=== PATIENT | male | born 1990 | race Caucasian/White ===

== ENCOUNTER 2018-06-30 00:12 | Emergency (ER) | payer MEDICARE ==
[~2018-06-30] VITALS: Ht 182.9 cm; Wt 118.4 kg
== END 2018-06-30 00:52 | disposition home or self-care (01) ==
LOC: ER 00:12
DX: R07.89 Other chest pain (principal); I10 Essential (primary) hypertension; R62.50 Unspecified lack of expected normal physiological development in childhood; E66.9 Obesity, unspecified; F17.210 Nicotine dependence, cigarettes, uncomplicated
CPT/HCPCS: 93005; 99282

== ENCOUNTER 2021-12-05 08:05 | Emergency (ER) | payer MEDICARE, OTHER ==
[~2021-12-05] VITALS: Ht 182.9 cm; Wt 118.4 kg
[2021-12-05] MEDS ORDERED: CLINDAMYCIN HC150 MG PO (08:28)
== END 2021-12-05 08:27 | disposition home or self-care (01) ==
LOC: ER 08:18
DX: L02.213 Cutaneous abscess of chest wall (principal); I10 Essential (primary) hypertension; F98.8 Other specified behavioral and emotional disorders with onset usually occurring in childhood and adolescence
CPT/HCPCS: 99282